=== PATIENT | male | born 1990 | race Caucasian/White ===

== ENCOUNTER 2018-03-12 20:14 | Emergency (ER) | payer SELFPAY ==
[2018-03-12 20:34] VITALS: BP 128/80
[2018-03-12] MEDS ORDERED: predniSONE 20 MG Tab PO ONE (20:58)
--- NOTE | 2018-03-12 21:04 | EDM.PDOC ---
ED HPI GENERAL MEDICAL PROBLEM - General Chief Complaint: Skin Complaint Stated Complaint: RASH ON RT LEG/SWOLLEN Time Seen by Provider: 03/12/18 20:52 Source of Information: Reports: Patient, Family, RN Notes Reviewed History Limitations: Reports: No Limitations - History of Present Illness INITIAL COMMENTS - FREE TEXT/NARRATIVE: 27-year-old presents emergency department today complaint of rash on his right lower extremity, he believes he was exposed to poison jassi last week he states it is quite itchy and he has had some swelling in that extremity as well denies any fevers - Related Data Allergies Allergy/AdvReac Type Severity Reaction Status Date / Time bee venom protein (honey bee) Allergy Airway Verified 03/12/18 20:37 Tightness tomato Allergy Rash Verified 03/12/18 20:37 Home Meds: Home Meds Albuterol [Ventolin HFA] 1 puff .XX ASDIRECTED PRN 03/12/18 [History] Past Medical History HEENT History: Reports: Allergic Rhinitis, Impaired Vision Other HEENT History: foreign body in eye Respiratory History: Reports: Asthma Gastrointestinal History: Reports: GERD Musculoskeletal History: Reports: Fracture - Infectious Disease History Infectious Disease History: Reports: Chicken Pox - Past Surgical History GI Surgical History: Reports: EGD Social & Family History - Tobacco Use Smoking Status *Q: Former Smoker Used Tobacco, but Quit: Yes Month/Year Tobacco Last Used: 2009 - Caffeine Use Caffeine Use: Reports: Coffee - Recreational Drug Use Recreational Drug Use: No ED ROS GENERAL - Review of Systems Review Of Systems: See Below Constitutional: Reports: No Symptoms Respiratory: Reports: No Symptoms Skin: Reports: Pallor, Pruritis, Rash, Wound ED EXAM, SKIN/RASH Exam: See Below Text/Narrative:: Examination the right lower extremity he does have multiple areas of linear streaking there is a fairly large patch new the top of the leg just below the knee with the itch scratch cycle breakdown of the skin area of erythema about the size of a softball it is warm to the touch tender to the touch Respiratory/Chest: No Respiratory Distress Course - Vital Signs Last Recorded V/S: Last Vital Signs Temp 98.6 F 03/12/18 20:41 Pulse 63 03/12/18 20:41 Resp 16 03/12/18 20:41 BP 128/80 03/12/18 20:41 Pulse Ox 95 06/24/18 20:41 - Orders/Labs/Meds Meds: Medications Discontinued Medications Generic Name Dose Route Start Last Admin Trade Name Sherine PRN Reason Stop Dose Admin Prednisone 60 mg 03/12/18 20:58 Prednisone PO 03/12/18 20:59 ONETIME ONE Departure - Departure Time of Disposition: 21:02 Disposition: Home, Self-Care 01 Condition: Good Clinical Impression: Contact dermatitis Qualifiers: Contact dermatitis type: irritant Contact dermatitis trigger: non-food plants Qualified Code(s): L24.7 - Irritant contact dermatitis due to plants, except food Cellulitis Qualifiers: Site of cellulitis: extremity Site of cellulitis of extremity: lower extremity Laterality: right Qualified Code(s): L03.115 - Cellulitis of right lower limb - Discharge Information Referrals: PCP,None [Primary Care Provider] - Additional Instructions: Take full course of antibiotics, take full course of prednisone, Please followup with your primary care provider in 7-10 days if not better, please call return to the emergency department with worsening of symptoms. - Assessment/Plan Plan: Assessment Acuity = acute Site and laterality = contact dermatitis with local cellulitis Etiology = probable poison jassi exposure Manifestations = pruritus Location of injury = Home Lab values = none Plan 500 mg by mouth 3 times a day 10 days, prednisone 60 mg once a day for 2 weeks followed by 40 mg for 1 week then stop follow-up with primary care 7-10 days if no improvement This note was dictated using [employer] voice recognition software please call with any questions on syntax or grammar.
== END 2018-03-12 21:28 | disposition home or self-care (01) ==
LOC: JP.ED 20:14
DX: L24.7 Irritant contact dermatitis due to plants, except food (principal); L03.115 Cellulitis of right lower limb; Z91.030 Bee allergy status; Z91.018 Allergy to other foods; Z87.891 Personal history of nicotine dependence
CPT/HCPCS: 99283; A9270

== ENCOUNTER 2020-04-23 23:03 | Emergency (ER) | payer MEDICAID ==
[2020-04-23 23:19] VITALS: BP 146/81; PULSE 67
--- NOTE | 2020-04-23 23:58 | EDM.PDOC ---
ED HPI GENERAL MEDICAL PROBLEM - General Chief Complaint: Skin Complaint Stated Complaint: POISON JYOTI Time Seen by Provider: 04/23/20 23:33 Source of Information: Reports: Patient History Limitations: Reports: No Limitations - History of Present Illness INITIAL COMMENTS - FREE TEXT/NARRATIVE: Patient presents for evaluation of recent onset poison jyoti which has become very annoying and distracting, in particular on his arms. He has had contact dermatitis like this in the past and states that around 19 March, he had itching from poison sumac. He has been applying witch vikki to the itchy, weeping areas, mostly on his forearms. He needs to head out of town and wants to be more comfortable. 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 He also believes that his asthma has flared up a little bit and his provider has called in a prescription for albuterol to the local pharmacy. He has never been given a spacer for his inhaler. No other recent changes in health. Onset: Gradual Duration: Day(s): (2) Location: Reports: Face, Upper Extremity, Left, Upper Extremity, Right Quality: Reports: Other (Itching.) Severity: Moderate Improves with: Reports: None Worsens with: Reports: Movement Associated Symptoms: Reports: Shortness of Breath - Related Data Allergies Allergy/AdvReac Type Severity Reaction Status Date / Time bee venom protein (honey bee) Allergy Airway Verified 04/23/20 23:20 Tightness tomato Allergy Rash Verified 04/23/20 23:20 Home Meds: Home Meds Albuterol [Ventolin HFA] 1 puff .XX ASDIRECTED PRN 03/12/18 [History] Past Medical History HEENT History: Reports: Allergic Rhinitis, Impaired Vision Other HEENT History: foreign body in eye Respiratory History: Reports: Asthma Gastrointestinal History: Reports: GERD Musculoskeletal History: Reports: Fracture Psychiatric History: Reports: ADD - Infectious Disease History Infectious Disease History: Reports: Chicken Pox - Past Surgical History GI Surgical History: Reports: EGD Social & Family History - Tobacco Use Smoking Status *Q: Never Smoker - Caffeine Use Caffeine Use: Reports: Coffee - Recreational Drug Use Recreational Drug Use: Yes ED ROS GENERAL - Review of Systems Review Of Systems: See Below Constitutional: Reports: No Symptoms HEENT: Reports: Other (Lesions on face.) Respiratory: Reports: Shortness of Breath. Denies: Wheezing Cardiovascular: Reports: No Symptoms GI/Abdominal: Reports: No Symptoms : Reports: No Symptoms Skin: Reports: Pruritis ED EXAM, SKIN/RASH Exam: See Below Text/Narrative:: This is an adult male in mild distress seated on the bed in room 2. Exam Limited By: No Limitations General Appearance: Alert, Mild Distress Throat/Mouth: Other (There are small papules and vesicles near the angle of the mouth on each side.) Head: Other (A few papulovesicular lesions over the maxillary prominences.) Neck: Other (Several poison jyoti spots on the neck.) Respiratory/Chest: No Respiratory Distress, Lungs Clear Skin: Erythema, Excoriations, Rash, Other (Rhus-appearing linear confluence of lesions, worst on the right forearm and to a lesser extent the left.) Course - Vital Signs Last Recorded V/S: Last Vital Signs Temp 37.0 C 04/23/20 23:22 Pulse 67 04/23/20 23:22 Resp 16 04/23/20 23:22 BP 146/81 H 04/23/20 23:22 Pulse Ox 99 04/23/20 23:22 - Re-Assessments/Exams Free Text/Narrative Re-Assessment/Exam: 04/24/20 00:33 Because of facial involvement and other significant areas, I will place him on prednisone with a tapering dose over the next week. He can use topical Caladryl lotion to the weeping areas. He should wash all clothing, shoes, laces which he is been handling over the last few days. He should also wipe off the cab of his truck in case there is residual oil on the parts of the cab he is in contact with. He should take his first dose of prednisone tonight to get things underway. Continue other local measures to improve itching. He can take Benadryl at night. Hopefully this will improve over the next day or 2. Return to ER if feeling worse in any way. Departure - Departure Time of Disposition: 23:56 Disposition: Home, Self-Care 01 Clinical Impression: Contact dermatitis due to poison jyoti, Asthma - Discharge Information Instructions: Poison Jyoti Dermatitis, Asthma, Adult Referrals: PCP,None [Primary Care Provider] - Forms: ED Department Discharge Additional Instructions: Start prednisone tablets now. You would not need to take your next dose until Ernesto morning however. Take Benadryl at night to reduce the itching and urge to scratch. It is okay to use Caladryl lotion on the oozing areas. Wash clothing that you have had on recently including shoes and shoelaces. Wipe down the surfaces in your cab with a shirt cleaner to remove traces of poison jyoti oil. 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 Put the inhaler in 1 and, fire it and breathing steadily. Hold the inhalation and for 15 seconds before breathing outflow through your nose. Do a second inhalation following that, again using the medication spacer. You should begin to feel better in 24 hours. If anything is feeling worse, return to emergency department or check with primary care provider. Sepsis Event Note (ED) - Evaluation Sepsis Screening Result: No Definite Risk - Focused Exam Vital Signs: Vital Signs Temp Pulse Resp BP Pulse Ox 04/23/20 23:22 37.0 C 67 16 146/81 H 99 04/23/20 23:18 37.0 C 67 16 146/81 H 99
== END 2020-04-24 00:09 | disposition home or self-care (01) ==
LOC: JP.ED 23:03
DX: L23.7 Allergic contact dermatitis due to plants, except food (principal); J45.909 Unspecified asthma, uncomplicated; Z91.030 Bee allergy status; Z91.018 Allergy to other foods
CPT/HCPCS: 99283